=== PATIENT | male | born 1985 | race African-American/Black ===

== ENCOUNTER → 2018-08-25 17:00 | Emergency (ER) | payer OTHER ==
[~2018-08-25 17:00] MED LIST: Azithromycin TAB* 250 MG PO ONE; LORazepam TAB(*) 1 MG PO ONE
[2018-08-25 18:38] LABS: ABS Basophils 0 10^3/ul (0-0.2); ABS Eosinophils 0.2 10^3/ul (0-0.6); ABS Lymphocytes 1.4 10^3/ul (1.0-4.8); ABS Nucleated RBC 0 10^3/ul; Eosinophil % 1.4 %; Hematocrit 45 % (36-46); Hemoglobin 15.4 g/dL (14.0-18.0); Lymphocyte % 11.7 %; Mean Corpuscular HGB Conc 34 g/dL (31-36); Mean Corpuscular Hemoglobin 30 pg (27-31); Mean Corpuscular Volume 88 fL (80-94); Nucleated Red Blood Cells % 0.3; Platelet Count 203 10^3/uL (150-450); Red Blood Count 5.13 10^6 /uL (4.18-5.48); Red Cell Distribution Width 13 % (10.5-15); White Blood Count 11.6 10^3/uL (3.5-10.8)
[2018-08-25 18:54] LABS: Albumin 4.7 g/dL (3.2-5.2); Albumin/Globulin Ratio 1.7 (1-3); BUN/Creatinine Ratio 13.4 (8-20); EGFR African American 106.6 (>60); EGFR Non-African American 88.1 (>60); Globulin 2.7 g/dL (2-4); Potassium 3.4 mmol/L (3.5-5.0); Total Bilirubin 0.8 mg/dL (0.2-1.0); Total Protein 7.4 g/dL (6.4-8.9)
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
[2018-08-25 19:15] LABS: TSH (Thyroid Stimulating Horm) 2.53 mcIU/mL (0.34-5.60)
[2018-08-25 20:04] VITALS: BP 118/79
== END | disposition home or self-care (01) ==
LOC: ED 17:00
DX: J40 Bronchitis, not specified as acute or chronic (principal); R07.9 Chest pain, unspecified; R06.02 Shortness of breath; Z72.0 Tobacco use; F41.9 Anxiety disorder, unspecified
CPT/HCPCS: 36415; 71045; 80053; 84443; 84484; 85025; 85379; 93005; 99283; A9270-GY

== ENCOUNTER 2019-05-09 10:53 | Emergency (ER) | payer SELFPAY ==
[2019-05-09] MEDS ORDERED: hydrOXYzine HCL TAB* 25 MG PO ONE (11:13)
--- NOTE | 2019-05-09 11:16 | ED ---
HPI Chest Pain - HPI Summary HPI Summary: Patient is a 34-year-old male who presents via EMS complaining of SOB, chest pain, and numbness since this morning when he woke up. Patient states that he has a history of anxiety and has panic attacks frequently, but he normally can cope with them himself. This morning he could not calm down and was scared so he called EMS. Patient states that he used to go to therapy for anxiety, but stopped going when it was suggested he be on medication. Patient admits to palpitations, tremors, numbness and tingling in all extremities, and nausea. Declines vomiting, abdominal pain. Declines urinary frequency, dysuria. Declines suicidal or homicidal ideation. Denies any cardiac history. - History of Current Complaint Chief Complaint: EDShortnessOfBreath Time Seen by Provider: 05/09/19 10:55 Hx Obtained From: Patient Onset/Duration: Started Hours Ago Timing: Constant Initial Severity: Severe Current Severity: Severe Pain Intensity: 10 Pain Scale Used: 0-10 Numeric Aggravating Factor(s): Nothing Alleviating Factor(s): Nothing Associated Signs and Symptoms: Positive: Anxiety, Recent Stress - Risk Factors Pulmonary Embolism Risk Factors: Negative TAD Risk Factors: Negative - Allergy/Home Medications Allergies/Adverse Reactions: Allergies Allergy/AdvReac Type Severity Reaction Status Date / Time No Known Allergies Allergy Verified 05/09/19 11:05 Home Medications: Home Medications NK [No Home Medications Reported] 05/09/19 [History Confirmed 05/09/19] PMH/Surg Hx/FS Hx/Imm Hx Previously Healthy: Yes Endocrine/Hematology History: Denies: Hx Diabetes Cardiovascular History: Denies: Hx Congestive Heart Failure, Hx Coronary Artery Disease, Hx Embolism , Hx Hypertension, Hx Myocardial Infarction, Hx Syncope Respiratory History: Denies: Hx Asthma, Hx Pneumonia GI History: Denies: Hx Gastroesophageal Reflux Disease History: Denies: Hx Renal Disease Psychiatric History: Reports: Hx Anxiety Denies: Hx Depression - Surgical History Surgery Procedure, Year, and Place: Shot in arm, repair - Immunization History Date of Tetanus Vaccine: Unk Date of Influenza Vaccine: None Hx Pertussis Vaccination: No Immunizations Up to Date: Yes Infectious Disease History: No Infectious Disease History: Denies: Traveled Outside the [place] in Last 30 Days - Family History Known Family History: Positive: Cardiac Disease - NV'S AT 40(MALE) AND 49 FEMALE , Hypertension, Diabetes, Blood Disorder - BLOOD CLOTS - Social History Occupation: Unemployed Lives: With Family Alcohol Use: Daily Alcohol Amount: 6 beers/day Hx Substance Use: No Substance Use Type: Reports: None Hx Tobacco Use: Yes Smoking Status (MU): Current Some Day Smoker Review of Systems Constitutional: Negative Eyes: Negative ENT: Negative Positive: Palpitations, Chest Pain - substernal chest pain Positive: Shortness Of Breath. Negative: Cough Positive: Nausea. Negative: Abdominal Pain, Vomiting, Diarrhea Genitourinary: Negative Positive: no symptoms reported. Negative: burning, dysuria, frequency, hematuria Musculoskeletal: Negative Skin: Negative Positive: Weakness, Paresthesia, Numbness Positive: Anxious All Other Systems Reviewed And Are Negative: Yes Physical Exam Triage Information Reviewed: Yes Vital Signs On Initial Exam: Initial Vitals Temp Pulse Resp BP Pulse Ox 97.3 F 85 26 126/65 100 05/09/19 10:57 05/09/19 10:57 05/09/19 10:57 05/09/19 10:57 05/09/19 10:57 Vital Signs Reviewed: Yes Appearance: Positive: Well-Appearing, Well-Nourished Skin: Positive: Warm, Skin Color Reflects Adequate Perfusion, Dry Head/Face: Positive: Normal Head/Face Inspection Eyes: Positive: Normal, EOMI, SUNIL, Conjunctiva Clear ENT: Positive: Normal ENT inspection, Hearing grossly normal Neck: Positive: Supple, Nontender Respiratory/Lung Sounds: Positive: Clear to Auscultation, Breath Sounds Present. Negative: Rales, Rhonchi, Wheezes Cardiovascular: Positive: Normal, RRR, S1, S2. Negative: Murmur, Rub Abdomen Description: Positive: Nontender, No Organomegaly, Soft Bowel Sounds: Positive: Present Musculoskeletal: Positive: Normal Neurological: Positive: Normal Psychiatric: Positive: Anxious Procedures - Sedation Patient Received Moderate/Deep Sedation with Procedure: No Diagnostics - Vital Signs Vital Signs Temp Pulse Resp BP Pulse Ox 05/09/19 10:57 97.3 F 85 26 126/65 100 - Laboratory Lab Statement: Any lab studies that have been ordered have been reviewed, and results considered in the medical decision making process. Chest Pain Course/Dx - Course Course Of Treatment: 34-year-old male who presents with SOB, chest pain, and numbness. States hx of anxiety, feeling more anxious than normal today. Appears anxious on exam. Lungs CTA B/L. Regular rate and rhythm. Given 1 mg PO Ativan. Requesting to speak with psych diesel technician. Ativan given with good effect. Pt states he no long feels anxious and would like to be discharged. Denies any SI/ HI. He is given information for [facility] and [facility]. - Chest Pain Differential Diagnosis/HQI/PQRI: Chest Wall, Lower Respiratory Infection, Other : - anxiety - Diagnoses Provider Diagnoses: Anxiety Discharge ED - Sign-Out/Discharge Documenting (check all that apply): Patient Departure - Discharge Plan Condition: Stable Disposition: HOME Patient Education Materials: Anxiety (ED) Referrals: [facility] [Outside] - 2 Days No Primary Care Phys,NOPCP [Primary Care Provider] - [facility] [[employer], APPLICATION, OTHER] - 1 Week Additional Instructions: Please follow up with [facility] to establish primary care Please follow [facility] with [facility] for further evaluation of your anxiety symptoms - Billing Disposition and Condition Condition: STABLE Disposition: Home
[2019-05-09] MEDS ORDERED: LORazepam TAB(*) 1 MG PO ONE (11:18)
[2019-05-09 13:22] VITALS: BP 123/73
== END 2019-05-09 13:29 | disposition home or self-care (01) ==
LOC: ED 10:53
DX: F41.9 Anxiety disorder, unspecified (principal); F17.200 Nicotine dependence, unspecified, uncomplicated
CPT/HCPCS: 99283; A9270-GY

== ENCOUNTER 2019-06-13 10:29 | Emergency (ER) | payer SELFPAY ==
[2019-06-13] MEDS ORDERED: Lorazepam PYXIS KEY PRN (10:33)
[2019-06-13] MEDS ORDERED: LORazepam INJ* 2 MG/ML 1 ML VIAL IV PUSH ONE (10:33)
[2019-06-13] MEDS ORDERED: NS 0.9% 1000 ML** 1,000 ML IV ONE (10:33)
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
[2019-06-13 11:06] LABS: ABS Eosinophils 0.2 10^3/ul (0-0.6); ABS Lymphocytes 1.2 10^3/ul (1.0-4.8); ABS Monocytes 0.5 10^3/ul (0-0.8); Eosinophil % 3.6 %; Hematocrit 46 % (42-52); Hemoglobin 15.9 g/dL (14.0-18.0); Lymphocyte % 24.4 %; Mean Corpuscular HGB Conc 35 g/dL (31-36); Mean Corpuscular Hemoglobin 31 pg (27-31); Mean Corpuscular Volume 89 fL (80-94); Mean Platelet Volume 7.9 fL (7.4-10.4); Platelet Count 186 10^3/uL (150-450); Red Blood Count 5.12 10^6 /uL (4.18-5.48); Red Cell Distribution Width 14 % (10-15); White Blood Count 4.9 10^3/uL (3.5-10.8)
[2019-06-13 11:52] LABS: Albumin 4.5 g/dL (3.2-5.2)
[2019-06-13 11:54] LABS: Calcium 9.8 mg/dL (8.6-10.3); Potassium 3.4 mmol/L (3.5-5.0); TSH (Thyroid Stimulating Horm) 1.56 mcIU/mL (0.34-5.60); Total Bilirubin 0.9 mg/dL (0.2-1.0)
[2019-06-13 11:58] LABS: Albumin/Globulin Ratio 1.8 (1-3); Globulin 2.5 g/dL (2-4)
[2019-06-13 12:00] LABS: BUN/Creatinine Ratio 18.4 (8-20); EGFR African American 104.7 (>60); EGFR Non-African American 86.5 (>60)
--- OUTSIDE RECORDS SUMMARY | 2019-06-13 12:03 | XMS REPORT | Continuity of Care Document ---
:1985 External Reference #:[id number] Author Name Park Hood MD (transmitted by agent of provider Juliane Etienne) Address [address], [place] [address] Problems Description No Information Available Social History Type Date Description Comments Sex Unknown ETOH Use 05/17/2019 Occasionally consumes 3 drinks per week, no alcohol binge drinking. Tobacco Use Reviewed: 06/07/11 Patient is a current smoker, 1 pack per day smokes every day Smoking Status Reviewed: 05/17/19 Patient is a current smoker, 1 pack per day smokes every day Allergies, Adverse Reactions, Alerts Description No Known Drug Allergies Medications Description No Active Medications Immunizations CPT Code Status Date Vaccine Lot # [id number] Given 05/17/2019 Tdap - Tetanus/Diptheria/Acellular Pertussis [id number] Given 05/17/2019 Influenza Virus Vaccine, Quadrivalent, Split, [id number] Preservative Free Vital Signs Date Vital Result Comment 05/17/2019 8:56am Height 65 inches 5'5" Weight 145.00 lb Heart Rate 80 /min BP Systolic Sitting 115 mmHg BP Diastolic Sitting 76 mmHg Body Temperature 98.4 F O2 % BldC Oximetry 98 % BMI (Body Mass Index) 24.1 kg/m2 Results Description No Information Available Procedures Description No Information Available Medical Devices Description No Information Available Encounters Description No Information Available Assessments Date Code Description Provider 05/17/2019 F41.9 Anxiety disorder, unspecified Park Hood MD 05/17/2019 Z23 Encounter for immunization Park Hood MD 05/17/2019 Z11.4 Encounter for screening for human immunodeficiency Park Hood MD virus [HIV] 05/17/2019 Z11.3 Encounter for screening for infections with a Park Hood MD predominantly sexual mode of transmission 05/17/2019 Z13.220 Encounter for screening for lipoid disorders Park Hood MD 05/17/2019 Z72.0 Tobacco use Park Hood MD Plan of Treatment 05/17/2019 - Park Hood MDF41.9 Anxiety disorder, unspecifiedReferral:[facility]/CounselorFollow up:Follow up once per year for [id number] Encounter for lzyemheaorstN70.4 Encounter for screening for human immunodeficiency virus [HIV]Z11.3 Encounter for screening for infections with a predominantly sexual mode of viavqawfgkszB55.220 Encounter for screening for lipoid gsixxktgrR68.0 Tobacco useComments:Please let us know if you need help quiting. Functional Status Description No Information Available Mental Status Description No Information Available Referrals Refer to Reason for Referral Status Appt Date [facility] Anxiety, PTSD, used to follow up Created with [address] [address] [phone]
[2019-06-13 12:34] VITALS: BP 112/65
== END 2019-06-13 12:33 | disposition home or self-care (01) ==
LOC: ED 10:29
DX: F41.9 Anxiety disorder, unspecified (principal); R07.89 Other chest pain; R06.02 Shortness of breath; Z82.49 Family history of ischemic heart disease and other diseases of the circulatory system; Z83.3 Family history of diabetes mellitus; Z83.2 Family history of diseases of the blood and blood-forming organs and certain disorders involving the immune mechanism; Z72.0 Tobacco use
CPT/HCPCS: 36415; 71046; 80053; 84443; 84484; 85025; 85379; 93005; 96361; 96374; 99283; J2060